=== PATIENT | male | born 1955 | race Two or more races ===

== ENCOUNTER → 2022-05-31 | Emergency (ER) | payer SELFPAY ==
[~2022-05-31] VITALS: Ht 193 cm; Wt 90.7 kg
[2022-05-31 20:17] VITALS: BP 140/90
--- NOTE | 2022-05-31 20:17 | NUR ---
[id number] FROM [facility] "WAS FOUND DRUNK IN BATHROOM" PER EMS, HEALING ABRASSION R FOREHEAD; NO ACTIVE BLEEDING NOTED. PT DOES NOT REMEMBER WHEN HE FELL NO OTHER MED COMPLAINTS. PT A/OX3. TOLERATING R/A WELL WITH NO RESP DISTRESS. RR EVEN AND NON LABORED. SAFETY MEASURES IN PLACE.
--- NOTE | 2022-05-31 20:34 | NUR ---
PUBLIC HEALTH PHYSICIAN AT PT'S BEDSIDE
--- NOTE | 2022-05-31 20:34 | NUR ---
COVID ANTIGEN SWAB COLLECTED AND SENT TO LAB
[2022-05-31 20:51] LABS: BASOPHILS % (AUTO) 0.2 % (0.0-2.0); HEMATOCRIT 51 % (39-51); HEMOGLOBIN 16.9 g/dL (13.5-17.5); LYMPHOCYTES # (AUTO) 0.6 K/uL (0.8-4.8); LYMPHOCYTES % (AUTO) 6.1 % (20.0-44.0); MEAN CORPUSCULAR HGB CONC 33 g/dl (31.0-36.0); MEAN CORPUSCULAR VOLUME 98 fL (80-96); MONOCYTES # (AUTO) 0.9 K/uL (0.1-1.30); MONOCYTES % (AUTO) 9.9 % (2.0-12.0); NEUTROPHILS # (AUTO) 7.9 K/uL (1.8-8.9); NEUTROPHILS % (AUTO) 83.8 % (43.0-81.0); PLATELET COUNT (AUTO) 236 K/uL (150-450); WHITE BLOOD COUNT (AUTO) 9.4 K/uL (4.3-11.0)
--- NOTE | 2022-05-31 20:59 | NUR ---
RETURNED FROM CT
[2022-05-31 21:02] LABS: CALCIUM, SERUM 8.7 mg/dL (8.5-10.1); CREATININE 0.9 mg/dL (0.6-1.3); POTASSIUM 4.1 mmol/L (3.5-5.1)
[2022-05-31 21:10] LABS: ALBUMIN 4.2 g/dL (3.4-5.0); BILIRUBIN,DIRECT 0.3 mg/dL (0.0-0.2); BILIRUBIN,TOTAL 1.1 mg/dL (0.2-1.0); TOTAL PROTEIN, SERUM 8.3 g/dL (6.4-8.2)
--- NOTE | 2022-05-31 21:15 | NUR ---
URINE COLLECTED AND SENT TO LAB
--- NOTE | 2022-05-31 21:54 | NUR ---
Patient discharged to home in stable condition. Written and verbal after care instructions given. Patient verbalizes understanding of instruction.
[2022-05-31 22:20] LABS: BILIRUBIN,URINE NEGATIVE (NEGATIVE); COLOR,URINE YELLOW (YELLOW); LEUKOCYTE ESTERASE ,URINE NEGATIVE (NEGATIVE); NITRITE, URINE NEGATIVE (NEGATIVE); PROTEIN,URINE TRACE mg/dl (NEGATIVE); UGLUCOSE NEGATIVE (NEGATIVE); UROBILINOGEN,URINE 0.2 EU/dL (0.2)
[2022-05-31 22:23] LABS: BACTERIA,URINE None seen /HPF (None Seen); SQUAMOUS EPITHELIAL CELL,UR Rare /HPF (None Seen); WBC,URINE NONE SEEN /HPF (0-3)
== END | disposition home or self-care (01) ==
LOC: EDBD 19:55 → ER 19:55
DX: F10.229 Alcohol dependence with intoxication, unspecified (principal); Z20.822 Contact with and (suspected) exposure to COVID-19; R74.01 Elevation of levels of liver transaminase levels; I10 Essential (primary) hypertension; E11.9 Type 2 diabetes mellitus without complications; S09.90XA Unspecified injury of head, initial encounter; S00.81XA Abrasion of other part of head, initial encounter; X58.XXXA Exposure to other specified factors, initial encounter; Y92.89 Other specified places as the place of occurrence of the external cause
CPT/HCPCS: 99284; 70450; 85025; 80048; 80076; 81001; 36415; 87426; 80143; 80320; 80307; C9803; G0480